=== PATIENT | male | born 1965 | race Caucasian/White ===

== ENCOUNTER → 2018-05-25 | Outpatient (CLI) | payer BC ==
[~2018-05-25] MED LIST: IOHEXOL 350 MG/ML 100 ML VIAL. IV ONE
--- NOTE | 2018-05-25 17:46 | RAD ---
Examination: CT ANGIO ABD ILEO/FEMOR RUNOFF History: bilterat feet numbness/ tingling omni 350 95ml Comparison/Correlation: None Findings: CT angiography exam of the abdominal aorta with runoff was performed. Sagittal and coronal reformatted images provided. 3-D volume rendered images provided. Visualized lung bases are clear. Abdominal aortic diameter is normal. No appreciable plaque. No aneurysm. Celiac and superior mesenteric arteries are widely patent. Approximately 50 percent stenosis of the inferior mesenteric artery origin is noted. Right main renal artery is patent. There are 2 left renal arteries. The smaller more superior artery as well as the more inferior artery are widely patent. Mild fatty infiltration liver suspected. Spleen is normal. Adrenal glands are normal. Left renal lower pole cyst is present. Kidneys are symmetric in perfusion and unremarkable on arteriographic phase images provided. Pancreas is normal. Iliac arteries are widely patent. Urinary bladder is unremarkable. No enlarged abdominal or pelvic lymph nodes. The bowel is overall unremarkable other than mild diverticulosis of the colon. Minimal plaque is suggested involving the right common femoral artery and superficial femoral artery. No significant stenosis involving the arterial vasculature of the thighs or calves. Dorsalis pedis artery bilaterally is patent at the level of the ankle. These arteries are diminutive more distally bilaterally and symmetric in appearance. Bony structures are unremarkable for the patient's age. Impression: No significant plaque or significant stenoses identified involving the arterial vasculature of the abdomen, pelvis, or lower extremities. Dorsalis pedis arteries are laterally diminutive but this is likely an anatomic variant. Electronically signed by: Casey Hameed MD (05/25/2018 5:44 PM) [facility]
== END | disposition home or self-care (01) ==
LOC: CT 09:27
PROVIDERS: ATTEND Family Medicine
DX: I73.9 Peripheral vascular disease, unspecified (principal); N28.1 Cyst of kidney, acquired; K57.30 Diverticulosis of large intestine without perforation or abscess without bleeding
CPT/HCPCS: 75635; Q9967